=== PATIENT | female | born 1970 | race Caucasian/White ===

== ENCOUNTER 2018-04-19 09:40 | Outpatient (REF) | payer SELFPAY ==
[2018-04-19 19:31] LABS: Hemoglobin A1C 6.5 % (4.5-6.2)
[2018-04-19 19:40] LABS: Anion Gap 5.4 mmol/L (3-11); BUN 17 mg/dL (7-18); CO2 35.6 mmol/L (21.0-32.0); CREATININE 0.96 mg/dL (0.55-1.02); Calcium 6.7 mg/dL (8.5-10.1); Chloride 104 mmol/L (98-107); Cholesterol 167 mg/dL (50-200); Glucose 118 mg/dL (70-100); HDL Cholesterol 39 mg/dL (40-60); LDL CHOLESTEROL 117 mg/dL (<100); Potassium 4.1 mmol/L (3.5-5.1); Sodium 145 mmol/L (136-145); TSH 46.29 uIU/mL (0.358-3.74); Triglyceride 92 mg/dL (30-150)
== END 2018-04-19 10:00 ==
LOC: NCHCN 09:40
PROVIDERS: Visit Provider Nurse Practitioner Family
DX: I10 Essential (primary) hypertension (principal); E03.9 Hypothyroidism, unspecified; R73.09 Other abnormal glucose
CPT/HCPCS: 80048; 80061; 83721; 83036; 84443

== ENCOUNTER 2020-01-23 12:21 | Outpatient (REF) | payer SELFPAY ==
[2020-01-23 19:49] LABS: BUN 16 mg/dL (7-18); CREATININE 0.75 mg/dL (0.55-1.02); Calcium 6.8 mg/dL (8.5-10.1); Calculated LDL 104 mg/dL (<100); Chloride 104 mmol/L (98-107); Cholesterol 163 mg/dL (<200); Glucose 99 mg/dL (74-106); HDL Cholesterol 47 mg/dL (40-60); Potassium 4.3 mmol/L (3.5-5.1); Sodium 146 mmol/L (136-145); TSH 15.61 uIU/mL (0.36-3.74); Triglyceride 62 mg/dL (<150)
[2020-01-23 20:11] LABS: Hemoglobin A1C 6.2 % (<5.7)
[2020-01-26 02:33] LABS: SARS-CoV-2 RNA Undetected (Undetected); SARS-CoV-2 Specimen Source Nasal
== END 2020-01-23 12:41 ==
LOC: NCHCN 12:21
PROVIDERS: Visit Provider Nurse Practitioner Family
DX: I10 Essential (primary) hypertension (principal); E03.9 Hypothyroidism, unspecified; R73.03 Prediabetes; Z13.220 Encounter for screening for lipoid disorders; Z20.828 Contact with and (suspected) exposure to other viral communicable diseases
CPT/HCPCS: 80048; 80061; U0003; 83036; 84443

== ENCOUNTER 2020-03-19 10:39 | Outpatient (REF) | payer SELFPAY ==
[2020-03-19 20:51] LABS: TSH 2.76 uIU/mL (0.36-3.74)
[2020-03-19 20:53] LABS: Hemoglobin A1C 6.2 % (<5.7)
== END 2020-03-19 10:59 ==
LOC: NCHCN 10:39
PROVIDERS: Visit Provider Nurse Practitioner Family
DX: R73.03 Prediabetes (principal); E03.9 Hypothyroidism, unspecified
CPT/HCPCS: 83036; 84443

== ENCOUNTER 2020-08-07 20:54 | Outpatient (REF) | payer SELFPAY ==
[2020-08-09 11:51] LABS: COVID-19 RT-PCR UVMMC Result Negative (Negative)
== END 2020-08-07 20:55 | disposition home or self-care (01) ==
LOC: NCHCN 20:54
PROVIDERS: Visit Provider Nurse Practitioner Family
DX: Z20.822 Contact with and (suspected) exposure to COVID-19 (principal); J06.9 Acute upper respiratory infection, unspecified
CPT/HCPCS: U0003

== ENCOUNTER 2021-02-20 13:23 | Outpatient (REF) | payer BC, SELFPAY ==
[2021-02-20 21:50] LABS: Hemoglobin A1C 6.2 % (<5.7)
[2021-02-20 22:03] LABS: Anion Gap 10.2 mmol/L (3-11); BUN 18 mg/dL (7-18); CO2 32.8 mmol/L (21.0-32.0); CREATININE 0.8 mg/dL (0.55-1.02); Calcium 6.8 mg/dL (8.5-10.1); Chloride 101 mmol/L (98-107); Glucose 107 mg/dL (74-106); Potassium 4.1 mmol/L (3.5-5.1); Sodium 144 mmol/L (136-145); TSH (W/Ref FT4) 37.54 uIU/mL (0.36-3.74)
[2021-02-20 22:29] LABS: FREE T4 0.81 ng/dL (0.76-1.46)
== END 2021-02-20 13:24 | disposition home or self-care (01) ==
LOC: NCHCN 13:23
PROVIDERS: Visit Provider Physician Assistant
DX: I10 Essential (primary) hypertension (principal); E03.9 Hypothyroidism, unspecified; R73.03 Prediabetes
CPT/HCPCS: 80048; 83036; 84439; 84443

== ENCOUNTER 2023-07-22 17:18 | Outpatient (REF) | payer SELFPAY ==
[2023-07-22 20:02] LABS: Abs Immature Grans 0.05 10^3/uL (0.0-0.06); Absolute Basophil Count 0.08 10^3/uL (0.0-0.2); Absolute Eosinophil Count 0.24 10^3/uL (0.0-0.7); Absolute Lymphocyte Count 1.33 10^3/uL (1.2-3.4); Absolute Monocyte Count 0.25 10^3/uL (0.1-0.8); Absolute Neutrophil Count 6.43 10^3/uL (1.2-6.7); Eosinophils % 2.9; Immature Grans % 0.6; Lymphocytes % 15.9; MCH 28.5 pg (27.0-33.0); MCHC 31.7 % (32.0-36.0); MCV 90 fL (80-95); MPV 11.1 fL (8.0-11.0); Neutrophils % 76.6; Platelet Count 257 10^3/uL (130-400); RBC 4.56 10^6/uL (3.93-5.22); RDW 14.5 % (11.7-14.6); RDW-SD 47.9 fL; WBC 8.38 10^3/uL (4.4-10.8)
[2023-07-22 20:20] LABS: Hemoglobin A1C 6.6 % (<5.7)
[2023-07-22 20:28] LABS: ALT 24 U/L (14-59); AST 16 U/L (15-37); Albumin 3.1 g/dL (3.4-5.0); Alkaline Phosphatase 98 U/L (46-116); Anion Gap 10.1 mmol/L (3-11); BUN 16 mg/dL (7-18); Bilirubin, Total 0.4 mg/dL (0.2-1.0); CO2 32.9 mmol/L (21.0-32.0); Chloride 103 mmol/L (98-107); Estimated GFR 66.95 (mL/min/1.73m2); Glucose 138 mg/dL (74-106); LDL CHOLESTEROL 105 mg/dL (<100); Potassium 4.1 mmol/L (3.5-5.1); Sodium 146 mmol/L (136-145); TSH (W/Ref FT4) 98.71 uIU/mL (0.36-3.74)
[2023-07-22 20:33] LABS: Calcium 6.2 mg/dL (8.5-10.1)
[2023-07-22 20:49] LABS: FREE T4 0.43 ng/dL (0.76-1.46); Total Protein 7.9 g/dL (6.4-8.2)
[2023-07-23 18:13] LABS: Vitamin D 25 Total 19.3 ng/mL (30-100)
== END 2023-07-22 17:19 | disposition home or self-care (01) ==
LOC: NCHCN 17:18
PROVIDERS: Visit Provider Physician Assistant
DX: D64.9 Anemia, unspecified (principal); I10 Essential (primary) hypertension; E83.51 Hypocalcemia; E03.9 Hypothyroidism, unspecified; R73.03 Prediabetes
CPT/HCPCS: 80053; 82306; 83721; 83036; 84439; 84443; 85025

== ENCOUNTER 2024-03-18 10:17 | Outpatient (REF) | payer BC, SELFPAY ==
[2024-03-18 20:34] LABS: Calcium 7.4 mg/dL (8.5-10.1); TSH (W/Ref FT4) 44.12 uIU/mL (0.36-3.74)
[2024-03-18 21:32] LABS: FREE T4 0.77 ng/dL (0.76-1.46)
[2024-03-21 10:43] LABS: Parathyroid Hormone,Intact <6.0 pg/mL (19.0-88.0)
== END 2024-03-18 10:18 | disposition home or self-care (01) ==
LOC: NCHCN 10:17
PROVIDERS: PCP Physician Assistant; Visit Provider Physician Assistant
DX: E03.9 Hypothyroidism, unspecified (principal); E83.51 Hypocalcemia
CPT/HCPCS: 82310; 83970; 84439; 84443

== ENCOUNTER 2024-08-25 18:45 | Outpatient (REF) | payer SELFPAY ==
[2024-08-25 20:51] LABS: ALT 21 U/L (14-59); AST 19 U/L (15-37); Albumin 3.2 g/dL (3.4-5.0); Alkaline Phosphatase 109 U/L (46-116); Anion Gap 5.7 mmol/L (3-11); BUN 15 mg/dL (7-18); Bilirubin, Total 0.4 mg/dL (0.2-1.0); CO2 36.3 mmol/L (21.0-32.0); CREATININE 0.9 mg/dL (0.55-1.02); Calcium 6.8 mg/dL (8.5-10.1); Chloride 103 mmol/L (98-107); Glucose 117 mg/dL (74-106); Potassium 3.8 mmol/L (3.5-5.1); Sodium 145 mmol/L (136-145); TSH (W/Ref FT4) 20.71 uIU/mL (0.36-3.74); Total Protein 7.9 g/dL (6.4-8.2)
[2024-08-25 21:09] LABS: FREE T4 0.96 ng/dL (0.76-1.46)
== END 2024-08-25 18:46 | disposition home or self-care (01) ==
LOC: NCHCN 18:45
PROVIDERS: PCP Physician Assistant; Visit Provider Physician Assistant
DX: E11.69 Type 2 diabetes mellitus with other specified complication (principal); E03.9 Hypothyroidism, unspecified
CPT/HCPCS: 80053; 84439; 84443

== ENCOUNTER 2024-11-18 21:16 | Outpatient (REF) | payer SELFPAY ==
[2024-11-18 19:27] LABS: TSH (W/Ref FT4) 15.07 uIU/mL (0.36-3.74)
== END 2024-11-18 21:17 | disposition home or self-care (01) ==
LOC: NCHCN 21:16
PROVIDERS: PCP Physician Assistant; Visit Provider Physician Assistant
DX: E03.9 Hypothyroidism, unspecified (principal)
CPT/HCPCS: 84439; 84443

== ENCOUNTER 2025-02-03 12:29 | Outpatient (REF) | payer SELFPAY ==
[2025-02-03 20:20] LABS: Hemoglobin A1C 6.4 % (<5.7)
[2025-02-03 20:29] LABS: TSH (W/Ref FT4) 10.71 uIU/mL (0.36-3.74)
== END 2025-02-03 12:30 | disposition home or self-care (01) ==
LOC: NCHCN 12:29
PROVIDERS: PCP Physician Assistant; Visit Provider Physician Assistant
DX: E03.9 Hypothyroidism, unspecified (principal); E11.9 Type 2 diabetes mellitus without complications
CPT/HCPCS: 83036; 84439; 84443